=== PATIENT | female | born 2000 | race Two or more races ===

== ENCOUNTER 2021-01-13 04:03 | Emergency (ER) | payer SELFPAY ==
[~2021-01-13] VITALS: Ht 172.7 cm; Wt 84.1 kg
[2021-01-13 04:04] VITALS: BP 132/75
[2021-01-13] MEDS ORDERED: PERTUSS(ACELL),DIPH,TET VAC/PF 0.5 ML SYRINGE IM. ONE (04:45)
[2021-01-13] MEDS ORDERED: AMOX TR/POT CLAV 875 MG/125 MG TABLET PO ONE (04:45)
[2021-01-13] MEDS ORDERED: ACETAMINOPHEN 500 MG TABLET PO ONE (04:45)
[2021-01-13] MEDS ORDERED: SODIUM CHLORIDE 0.9% 250 ML IRRIG SOLUTION BOTTLE IRRIG ONE (04:45)
== END 2021-01-13 05:44 | disposition home or self-care (01) ==
LOC: EMS 04:03
DX: S71.152A Open bite, left thigh, initial encounter (principal); S80.812A Abrasion, left lower leg, initial encounter; S40.811A Abrasion of right upper arm, initial encounter; W55.01XA Bitten by cat, initial encounter; Y93.89 Activity, other specified; Y92.89 Other specified places as the place of occurrence of the external cause; Y99.8 Other external cause status
CPT/HCPCS: 90471; 90715; 99283

== ENCOUNTER 2023-05-14 21:15 | Emergency (ER) | payer MEDICAID ==
[~2023-05-14] VITALS: Ht 167.6 cm; Wt 81.8 kg
[2023-05-14] MEDS ORDERED: NAPH15DR75 OU (23:26)
[2023-05-14] MEDS ORDERED: IBUP-1554 PO (23:26)
[2023-05-14] MEDS ORDERED: ACET-2080 PO (23:26)
[2023-05-14] MEDS: ACETAMINOPHEN/CODEINE 300-30 MG TABLET PO ONE (23:42)
[2023-05-14] MEDS: IBUPROFEN 600 MG TABLET PO ONE (23:42)
[2023-05-14] MEDS: PROPARACAINE HCL 0.5% 15 ML OPHTHALMIC SOLUTION OU ONE (23:43)
[2023-05-15 00:15] VITALS: BP 115/72; PULSE 80; RESP 18; TEMP 98.3
== END 2023-05-15 00:41 | disposition home or self-care (01) ==
LOC: EMS 21:15
DX: H10.13 Acute atopic conjunctivitis, bilateral (principal)
CPT/HCPCS: 99284; J9035; Z7502; Z7610